=== PATIENT | female | born 1990 | race Caucasian/White ===

== ENCOUNTER 2020-01-16 10:29 | Inpatient (IN) | payer BC ==
[2020-01-16] MEDS ORDERED: LIDOCAINE 0.5% (PF) 5 MG/ML (50 ML SDV) SQ PRN (11:30)
[2020-01-16] MEDS ORDERED: OXYTOCIN 10 UNIT/ML 1 ML VIAL IM PRN (11:30)
[2020-01-16] MEDS ORDERED: TERBUTALINE 1 MG/ML VIAL SQ PRN (11:30)
[2020-01-16] MEDS ORDERED: METHYLERGONOVINE 0.2 MG/ML 1 ML AMP IM PRN (11:30)
[2020-01-16] MEDS ORDERED: OXYTOCIN 30 UNITS/500 ML NS 30 UNIT in SALINE 1 500ML.BAG IV SCH (11:30)
[2020-01-16] MEDS ORDERED: CARBOPROST TROMETHAMINE 250 MCG/ML 1 ML AMP IM PRN (11:30)
[2020-01-16 11:43] LABS: Basophils % (A) 0 %; Eosinophils # (A) 0.1 k/uL (0-0.7); Eosinophils % (A) 1 %; HCT 36.2 % (34.0-46.0); HGB 12.4 gm/dL (11.4-16.0); Lymphocytes # (A) 1.5 k/uL (1.0-4.8); Lymphocytes % (A) 18 %; MCH 30.6 pg (25.0-35.0); MCHC 34.2 g/dL (31.0-37.0); MCV 89.4 fL (80.0-100.0); Mean Platelet Volume 8.9; Monocytes # (A) 0.3 k/uL (0-1.0); Monocytes % (A) 3 %; Neutrophils # (A) 6.4 k/uL (1.3-7.7); Neutrophils % (A) 77 %; Platelet Count 196 k/uL (150-450); RBC 4.05 m/uL (3.80-5.40); RDW 14.1 % (11.5-15.5); WBC 8.3 k/uL (3.8-10.6)
[2020-01-16] MEDS: LACTATED RINGERS 1,000 ML IV SCH ×3 (12:26→19:35)
[2020-01-16] MEDS ORDERED: BUTORPHANOL 1 MG/ML 1 ML VIAL IV PRN (12:30)
--- NOTE | 2020-01-16 12:30 | P.HPOB ---
History of Present Illness H&P Date: 01/16/20 Chief Complaint: IUP @ 38 6/7 PRETTY [place] This is a pleasant 28-year-old 2 para 0010 at 38-6/7 weeks with an estimated due date of 01/23 based on last menstrual period and consistent with ultrasound. Patient has a known history of polycystic ovarian syndrome and has been on metformin, patient went through fertility with Dr. Garcia. Patient has a known history of hypothyroidism that has been stable throughout the . care has been essentially uncomplicated. Patient presents today with complaints of spontaneous rupture of membranes around 9 AM. Patient states she noted a clear gush of fluid at that time. Patient denies contractions. Patient then presented to the hospital, immature was noted to be family positive. Patient notes good movement , no vaginal bleeding. On bloodwork this patient has a blood type of O+, rubella status immune, RPR nonreactive, hepatitis B surface antigen negative, HIV negative, she did pass her early 1 hour Glucola along with her second trimester Glucola. Group beta strep was negative on 12/28. She did receive the TDap vaccination on 12/06. Review of Systems Constitutional: Denies chills, Denies fatigue, Denies fever Ears, nose, mouth and throat: Denies headache Cardiovascular: Reports leg edema Respiratory: Denies dyspnea Gastrointestinal: Denies constipation, Denies diarrhea, Denies nausea, Denies vomiting Genitourinary: Reports Past Medical History Past Medical History: No Reported History History of Any Multi-Drug Resistant Organisms: None Reported Past Surgical History: Hernia Repair Additional Past Surgical History / Comment(s): hernia operation at age of 6 Past Anesthesia/Blood Transfusion Reactions: No Reported Reaction Past Psychological History: Anxiety Smoking Status: Never smoker Past Alcohol Use History: None Reported Past Drug Use History: None Reported - Past Family History Father Family Medical History: Hypertension Medications and Allergies Home Medications Medication Instructions Recorded Confirmed Type Pnv No.95/Ferrous Fum/Folic AC 1 each PO DAILY 01/16/20 01/16/20 History [ Multivitamin Tablet] metFORMIN HCL 500 mg PO DAILY 01/16/20 01/16/20 History Allergies Allergy/AdvReac Type Severity Reaction Status Date / Time Latex, Natural Rubber AdvReac Itching Verified 01/16/20 10:35 Exam Osteopathic Statement: *. No significant issues noted on an osteopathic structural exam other than those noted in the History and Physical/Consult. Vital Signs Temp Pulse Resp BP 01/16/20 11:17 97 F L 89 16 131/81 01/16/20 10:36 97.0 F L 89 16 131/81 Intake and Output 01/15/20 01/16/20 01/16/20 22:59 06:59 14:59 Other: Weight 93.44 kg Targeted physical exam is performed in this date and counter former a well-nourished well-developed female in no acute distress, breathing is noted to be nonlabored, heart has regular rate and rhythm, abdomen is gravid, lower remedies noticed +1 edema, on vaginal exam she is 3/80/-2 amniotic sac is palpated and amniotomy is performed with clear fluid. heart tones are noted to be category 1 there contractions noted. Results Result Diagrams: 01/16/20 11:25 Assessment and Plan (1) Term Current Visit: Yes Status: Acute Code(s): Z34.90 - ENCNTR FOR SUPRVSN OF NORMAL , UNSP, UNSP TRIMESTER SNOMED Code(s): 44014650 (2) SROM (spontaneous rupture of membranes) Current Visit: Yes Status: Acute Code(s): YYZ6458 - SNOMED Code(s): 358083774 (3) PCOS (polycystic ovarian syndrome) Current Visit: Yes Status: Acute Code(s): E28.2 - POLYCYSTIC OVARIAN SYNDROME SNOMED Code(s): 893495729 (4) Hypothyroid Current Visit: Yes Status: Acute Code(s): E03.9 - HYPOTHYROIDISM, UNSPE CIFIED SNOMED Code(s): 66087341 Plan: This 29-year-old 2 para 0010 at 38-6/7 weeks is admitted to labor and delivery for spontaneous rupture of membranes. Patient is counseled on Pitocin augmentation of labor given no contractions are begun since her water broke around 9 AM. She states understanding of the plan. Plan Pitocin augmentation of labor, options for analgesia during labor discussed with patient including epidural and Stadol. Patient does wish epidural. We'll monitor closely.
--- NOTE | 2020-01-16 12:45 | P.MSEPDOC ---
Presenting Problems - Arrival Data Date of Arrival on Unit: 01/16/20 Time of Arrival on Unit: 11:15 Mode of Transport: Ambulatory - Complaint OB-Reason for Admission/Chief Complaint: Rule Out SROM Comment: reports rupture around 0900 am, clear fluid Medical History - Information : 2 Para: 0 Term: 0 : 0 Abortions: Spontaneous or Elective: 0 Number of Living Children: 0 - Gestational Age Gestational Age by NAOMI (wks/days): 38 Weeks and 6 Days Review of Systems - Review of Systems Constitutional: No problems Breast: No problems ENT: No problems Cardiovascular: No problems Respiratory: No problems Gastrointestinal: No problems Genitourinary: No problems Musculoskeletal: No problems Neurological: No problems Skin: No problems Vital Signs - Temperature Temperature: 97 F Temperature Source: Temporal Artery Scan - Pulse Right Brachial Pulse Rate: 89 Pulse Assessment Method: Automatic Cuff - Respirations Respiratory Rate: 16 Oxygen Delivery Method: Room Air - Blood Pressure Right Arm Blood Pressure: 131/81 Blood Pressure Mean: 97 Blood Pressure Source: Automatic Cuff Medical Screen Scoring (Pre) - Cervical Exam Dilation: 1-3 cm = 1 Effacement: More than 50% = 2 Membranes: Ruptured = 3 - Uterine Contractions Frequency: > 5 minutes apart = 1 Duration: N/A Intensity: N/A - Maternal Vital Signs Maternal Temperature: N/A Maternal Blood Pressure: N/A Signs of Preeclampsia: N/A Maternal Respirations: N/A - Maternal Trauma Maternal Trauma: N/A - Assessment - Baby A Baseline FHR: 155 Heart Rate - NICHD Category: Category I (Normal) = 0 NST: Reactive Position: N/A Station: N/A - Total Score - Baby A Total Score - Baby A: 7 - Total Score - Baby B Total Score - Baby B: 7 - Total Score - Baby C Total Score - Baby C: 7 - Level of Risk - Baby A Level of Risk - Baby A: Medium (6-9) - Level of Risk - Baby B Level of Risk - Baby B: Medium (6-9) - Level of Risk - Baby C Level of Risk - Baby C: Medium (6-9) Physician Notification (Pre) - Physician Notified Physician Notified Date: 01/16/20 Physician Notified Time: 10:58 New Order Received: Yes - Notification Comment Comment: reported positive amnisure, reactive nst, dilation. admit for labour Disposition - Disposition OB Disposition: Admit, LDRP Suite I agree with the RN Medical Screening Exam: Yes Risk & Benefit of care provided described in d/c instruction: Yes Diagnosis: RELATED CONDITIONS, UNSPECIFIED, THIRD TRIMESTER
[2020-01-16] MEDS ORDERED: SODIUM CHLORIDE 0.9% 100 ML BAG ONE ×2 (15:20)
[2020-01-16] MEDS ORDERED: fentaNYL (PF) 50 MCG/ML 5 ML AMP ONE ×2 (15:20)
[2020-01-16] MEDS ORDERED: ROPIVACAINE 5MG/ML 20ML VIAL ONE ×2 (15:20)
[2020-01-16] MEDS ORDERED: diphenhydrAMINE 25 MG CAP PO PRN (22:27)
[2020-01-16] MEDS ORDERED: diphenhydrAMINE 50 MG/ML 1 ML VIAL IVP PRN ×2 (22:27)
[2020-01-16] MEDS ORDERED: ZOLPIDEM 5 MG TAB PO PRN (22:27)
[2020-01-16] MEDS ORDERED: HYDROcodone/APAP 5-325MG 1 EACH TAB PO PRN (22:27)
[2020-01-16] MEDS ORDERED: diphenhydrAMINE 50 MG CAP PO PRN (22:27)
[2020-01-16] MEDS ORDERED: BENZOCAINE/MENTHOL SPRAY 1 GM/SPRAY AEROSOL TOPICAL PRN (22:27)
[2020-01-16] MEDS ORDERED: SIMETHICONE 80 MG CHEWABLE PO PRN (22:27)
[2020-01-16] MEDS ORDERED: LANOLIN CREAM 5 GM TUBE TOPICAL PRN (22:27)
[2020-01-16] MEDS ORDERED: ACETAMINOPHEN TAB 325 MG TAB PO PRN (22:27)
[2020-01-16] MEDS ORDERED: HYDROCORTISONE 2.5% RECTAL CREAM 30 GM TUBE RECTAL PRN (22:27)
[2020-01-16] MEDS ORDERED: OXYTOCIN 20 UNITS/1000 ML NS 1,000 ML IV SCH (22:30)
--- NOTE | 2020-01-16 22:33 | P.PROBDLV ---
Vaginal Delivery Note - . Vaginal Delivery Note: This pleasant 29-year-old 2 para 0010 at 38-6/7 weeks presented to labor and delivery this morning with complaints of rupture of membranes. Rupture of membranes was confirmed with amnio sure. Patient was admitted to labor and delivery and Pitocin augmentation of labor was begun. Patient did undergo amniotomy of a 4 bag clear fluid was obtained. Patient was noted to be group beta strep negative.. Patient progressed through labor eventually becoming uncomfortable and requesting epidural placement epidural was placed by the anesthesia Department without difficulty. Patient progressed to complete began pushing and had a normal spontaneous vaginal delivery of a viable male at 2210, weight of 7 lbs. 9 oz. with Apgars of 7-8 at one and 5 minutes respectively. tachycardia was noted just prior to delivery therefore nursery RN was there to receive the baby. Spontaneous cry was noted at . The umbilical cord was doubly clamped and cut and the was handed off to awaiting RN. The placenta was then delivered spontaneously intact with a three-vessel cord being noted, the placenta was noted to be warm to touch. No maternal temps. were noted during delivery. On inspection the patient's vaginal vault a first- degree vaginal laceration was noted this was repaired in the usual fashion with 3-0 Rapide. After instillation of lidocaine. No further lacerations were noted on further inspection hemostasis was appreciated on laceration site after repair. Estimated blood loss 300 mL All counts were noted to be correct 2 Patient and infant tolerated delivery well and are resting comfortably.
[2020-01-16] MEDS: IBUPROFEN 600 MG TAB PO PRN (22:36)
[2020-01-17 06:16] LABS: Basophils % (A) 0 %; Eosinophils % (A) 0 %; HCT 32.7 % (34.0-46.0); HGB 10.7 gm/dL (11.4-16.0); Lymphocytes # (A) 1.6 k/uL (1.0-4.8); Lymphocytes % (A) 9 %; MCH 29.4 pg (25.0-35.0); MCHC 32.8 g/dL (31.0-37.0); MCV 89.8 fL (80.0-100.0); Mean Platelet Volume 8.6; Monocytes # (A) 0.6 k/uL (0-1.0); Monocytes % (A) 3 %; Neutrophils # (A) 14.7 k/uL (1.3-7.7); Neutrophils % (A) 86 %; Platelet Count 183 k/uL (150-450); RBC 3.64 m/uL (3.80-5.40); RDW 14.2 % (11.5-15.5); WBC 17.1 k/uL (3.8-10.6)
[2020-01-17] MEDS: SENNOSIDES-DOCUSATE SODIUM 1 EACH TAB PO SCH ×2 (07:32→19:51)
[2020-01-17] MEDS: IBUPROFEN 600 MG TAB PO PRN ×2 (07:33→18:51)
[2020-01-17 08:35] VITALS: RESP 16
--- NOTE | 2020-01-17 09:08 | P.PNOBGVD ---
Subjective - Subjective Principal diagnosis: day 1 Interval history: Feeling sore, moderate lochia, voiding spontaneously Patient reports: Reports appetite normal, Reports voiding normally, Reports pain well controlled, Reports ambulating normally, Denies dizzy ambulation : doing well Objective - Latest Vital Signs Latest vital signs: Vital Signs Temp Pulse Resp BP Pulse Ox 01/17/20 08:00 97.6 F 86 16 121/72 01/17/20 04:00 97.8 F 80 14 148/86 98 01/17/20 00:19 98 F 77 14 131/65 97 01/16/20 23:49 98.3 F 98 14 137/66 01/16/20 23:19 94 14 129/61 01/16/20 23:04 103 H 14 123/59 01/16/20 22:49 93 14 127/59 01/16/20 22:34 98.5 F 109 H 14 142/57 01/16/20 22:19 98 F 116 H 14 126/59 96 01/16/20 12:45 97 F L 89 16 131/81 01/16/20 11:17 97 F L 89 16 131/81 01/16/20 10:36 97.0 F L 89 16 131/81 Intake and Output 01/16/20 01/17/20 01/17/20 22:59 06:59 14:59 Output Total 300 Balance -300 Output: Estimated Blood Loss 300 Other: # Voids 1 1 1 - Exam Extremities: Present: normal, edema Abdomen: Present: normal appearance, soft Uterus: Present: normal, firm - Labs Labs: Abnormal Lab Results - Last 24 Hours (Table) 01/17/20 Range/Units 05:25 WBC 17.1 H (3.8-10.6) k/uL RBC 3.64 L (3.80-5.40) m/uL Hgb 10.7 L (11.4-16.0) gm/dL Hct 32.7 L (34.0-46.0) % Neutrophils # 14.7 H (1.3-7.7) k/uL Assessment and Plan (1) Hypothyroid Current Visit: Yes Status: Acute Code(s): E03.9 - HYPOTHYROIDISM, UNSPECIFIED SNOMED Code(s): 21898452 (2) PCOS (polycystic ovarian syndrome) Current Visit: Yes Status: Acute Code(s): E28.2 - POLYCYSTIC OVARIAN SYNDROME SNOMED Code(s): 464529420 (3) SROM (spontaneous rupture of membranes) Current Visit: Yes Status: Acute Code(s): TLS0880 - SNOMED Code(s): 838780921 (4) Term Current Visit: Yes Status: Acute Code(s): Z34.90 - ENCNTR FOR SUPRVSN OF NORMAL , UNSP, UNSP TRIMESTER SNOMED Code(s): 26597256 (5) Normal spontaneous vaginal delivery Current Visit: Yes Status: Acute Code(s): O80 - ENCOUNTER FOR FULL-TERM UNCOMPLICATED DELIVERY SNOMED Code(s): 19933117 (6) Perineal laceration with delivery, second degree Current Visit: Yes Status: Acute Code(s): O70.1 - SECOND DEGREE PERINEAL LACERATION DURING DELIVERY SNOMED Code(s): 1526887 Plan: 29 year old 2 para 1 day one half status post normal spontaneous vaginal delivery. Recovering well. Probable discharge home tomorrow.
[2020-01-17] MEDS: metFORMIN 500 MG TAB PO SCH (11:11)
[2020-01-17] MEDS: PRENATAL VIT-IRON-FOLIC ACID 1 EACH CAP PO SCH (11:11)
[2020-01-18] MEDS: IBUPROFEN 600 MG TAB PO PRN ×2 (00:43→07:46)
[2020-01-18] MEDS: PRENATAL VIT-IRON-FOLIC ACID 1 EACH CAP PO SCH (07:46)
[2020-01-18] MEDS: SENNOSIDES-DOCUSATE SODIUM 1 EACH TAB PO SCH (07:47)
[2020-01-18] MEDS: metFORMIN 500 MG TAB PO SCH (07:49)
[2020-01-18 07:52] VITALS: BP 115/81; PULSE 84; TEMP 97.7
--- NOTE | 2020-01-18 10:34 | P.DS ---
Providers Date of admission: 01/16/20 10:51 Expected date of discharge: 01/18/20 Attending physician: Mirian Burns Primary care physician: Stated None - Discharge Diagnosis(es) (1) Hypothyroid Current Visit: Yes Status: Acute (2) PCOS (polycystic ovarian syndrome) Current Visit: Yes Status: Acute (3) SROM (spontaneous rupture of membranes) Current Visit: Yes Status: Acute (4) Term Current Visit: Yes Status: Acute (5) Normal spontaneous vaginal delivery Current Visit: Yes Status: Acute (6) Perineal laceration with delivery, second degree Current Visit: Yes Status: Acute Hospital Course: This is a 29-year-old 2 now para 1011 woman who was admitted at 38-6/7 weeks' gestation with spontaneous rupture of membranes. She underwent a Pitocin induction of labor. She received an epidural anesthetic. She went on to deliver a liveborn male weighing 7 lbs. 9 oz. with Apgars of 7 at 1 minute and 8 at 5 minutes. Infant had some tachycardia immediately prior to delivery. The infant was monitored for CBC as well as a heart murmur and was diagnosed with ASD by the nursery staff. The patient's course was unremarkable. By day #1 she was ambulating and voiding without difficulty. By day #2 she continued to do well with stable vital signs, decreasing lochia and she was breast-feeding successfully. was discharged to follow up with film and video graphics designer in good condition and the patient was therefore discharged home on day #2 with routine instructions for care and follow-up. Procedures: Patient Condition at Discharge: Good Plan - Discharge Summary Discharge Rx Participant: Yes New Discharge Prescriptions: No Action metFORMIN HCL 500 mg PO DAILY Pnv No.95/Ferrous Fum/Folic AC [ Multivitamin Tablet] 1 each PO DAILY Discharge Medication List Pnv No.95/Ferrous Fum/Folic AC [ Multivitamin Tablet] 1 each PO DAILY 01/16/20 [History] metFORMIN HCL 500 mg PO DAILY 01/16/20 [History] Follow up Appointment(s)/Referral(s): Karena Vasquez MD [STAFF PHYSICIAN] - 6 Weeks Activity/Diet/Wound Care/Special Instructions: Follow-up in the office in 6 weeks . Call with any concerning signs or symptoms including heavy vaginal bleeding, severe abdominal pain, fever greater than 101, swelling or redness of the lower extremities, foul vaginal discharge, or signs of depression. Nothing in the vagina for 6 weeks after delivery, specifically no intercourse. May use [id number] Tylenol and/or ibuprofen as needed for pain. May discontinue home metformin. Discharge Disposition: HOME SELF-CARE
== END 2020-01-18 13:41 | disposition home or self-care (01) | DRG 807 ==
LOC: FBPOP 10:29 → 4FBP 10:51
PROVIDERS: ADMIT Obstetrics & Gynecology Obstetrics; ATTEND Obstetrics & Gynecology Obstetrics
PROC: 0KQM0ZZ Repair Perineum Muscle, Open Approach (ICD-10-PCS; principal; 2020-01-16)
PROC: 10E0XZZ Delivery of Products of Conception, External Approach (ICD-10-PCS; principal; 2020-01-16)
DX: O99.284 Endocrine, nutritional and metabolic diseases complicating childbirth (principal); Z37.0 Single live birth; O70.1 Second degree perineal laceration during delivery; O76 Abnormality in fetal heart rate and rhythm complicating labor and delivery; E03.9 Hypothyroidism, unspecified; E28.2 Polycystic ovarian syndrome; Z3A.38 38 weeks gestation of pregnancy; Z79.84 Long term (current) use of oral hypoglycemic drugs; Z91.040 Latex allergy status; Z86.59 Personal history of other mental and behavioral disorders; Z82.49 Family history of ischemic heart disease and other diseases of the circulatory system
CPT/HCPCS: 59025; 84112; 85025; 86850; 86900; 86901; 88307; 99213

== ENCOUNTER → 2020-05-11 | Outpatient (CLI) | payer BC | END | disposition home or self-care (01) | LOC: LABWHC1 09:09 | DX: Z20.828 Contact with and (suspected) exposure to other viral communicable diseases (principal) | CPT/HCPCS: 87502; U0003; C9803 ==

== ENCOUNTER 2021-02-22 06:30 | Inpatient (IN) | payer BC ==
[2021-02-22] MEDS ORDERED: TERBUTALINE 1 MG/ML VIAL SQ PRN (06:45)
[2021-02-22] MEDS ORDERED: CARBOPROST TROMETHAMINE 250 MCG/ML 1 ML AMP IM PRN (06:45)
[2021-02-22] MEDS ORDERED: OXYTOCIN 30 UNITS/500 ML NS 30 UNIT in SALINE 1 500ML.BAG IV SCH ×2 (06:45→13:15)
[2021-02-22] MEDS ORDERED: LIDOCAINE 0.5% (PF) 5 MG/ML (50 ML SDV) SQ PRN (06:45)
[2021-02-22] MEDS ORDERED: METHYLERGONOVINE 0.2 MG/ML 1 ML AMP IM PRN (06:45)
[2021-02-22] MEDS ORDERED: OXYTOCIN 10 UNIT/ML 1 ML VIAL IM PRN (06:45)
[2021-02-22] MEDS: LACTATED RINGERS 1,000 ML IV SCH ×2 (07:02→10:11)
[2021-02-22 08:14] LABS: Basophils % (A) 0 %; Eosinophils # (A) 0.1 k/uL (0-0.7); Eosinophils % (A) 1 %; HCT 35.4 % (34.0-46.0); HGB 12.4 gm/dL (11.4-16.0); Lymphocytes # (A) 1.8 k/uL (1.0-4.8); Lymphocytes % (A) 17 %; MCH 32.4 pg (25.0-35.0); MCV 92.5 fL (80.0-100.0); Mean Platelet Volume 7.7; Monocytes # (A) 0.5 k/uL (0-1.0); Monocytes % (A) 5 %; Neutrophils % (A) 76 %; Platelet Count 207 k/uL (150-450); RBC 3.82 m/uL (3.80-5.40); RDW 14.3 % (11.5-15.5); WBC 10.6 k/uL (3.8-10.6)
[2021-02-22] MEDS ORDERED: BUTORPHANOL 1 MG/ML 1 ML VIAL IV PRN (08:48)
--- NOTE | 2021-02-22 08:53 | P.HPOB ---
History of Present Illness H&P Date: 02/22/21 Chief Complaint: 39+ weeks, elective induction of labor The patient is a 30-year-old 3 para 1011 admitted at 39+ weeks as established by early ultrasound. Her has been uncomplicated and group B strep status is negative. On labor and delivery, all signs reassuring with a category 1 heart rate tracing. She has requested tubal ligation should section become necessary. Obstetrical history: 3 para [id number] with 1 term vaginal delivery and 1 early miscarriage not requiring D&C. Current statistics are listed in history of present illness. EDC of 02/27/2021 was established by early ultrasound. Laboratory workup demonstrates a blood type of O+ with a negative antibody screen. Rubella status is nonimmune. The remainder of laboratory workup was within normal limits. One hour Glucola was normal and group B strep status is negative. Gynecologic history: Unremarkable with no history of any infections to include STDs. Review of Systems Review of systems is confined to history of present illness. Past Medical History Past Medical History: No Reported History History of Any Multi-Drug Resistant Organisms: None Reported Past Surgical History: Hernia Repair Additional Past Surgical History / Comment(s): hernia operation at age of 6, broke tail bone at 13 or 14 yrs old Past Anesthesia/Blood Transfusion Reactions: No Reported Reaction Past Psychological History: Anxiety Smoking Status: Never smoker Past Alcohol Use History: None Reported Past Drug Use History: None Reported - Past Family History Father Family Medical History: Hypertension Medications and Allergies Home Medications Medication Instructions Recorded Confirmed Type Pnv No.95/Ferrous Fum/Folic AC 1 each PO DAILY 01/16/20 02/22/21 History [ Multivitamin Tablet] metFORMIN HCL 500 mg PO DAILY 01/16/20 02/22/21 History Aspirin 81 mg PO DAILY 02/22/21 02/22/21 History Allergies Allergy/AdvReac Type Severity Reaction Status Date / Time Latex, Natural Rubber AdvReac Itching Verified 01/16/20 10:35 Exam Vital Signs Temp Pulse Resp BP Pulse Ox 02/22/21 06:44 96.9 F L 94 16 129/69 100 Intake and Output 02/21/21 02/22/21 02/22/21 22:59 06:59 14:59 Other: Weight 97.976 kg In general, this is a well-developed, mildly obese white female in no acute distress. Her heart has a regular rhythm and rate without murmur. Her lungs are clear to auscultation bilaterally in all carrera. Her abdomen is gravid, nondistended, has normal active bowel sounds, soft, nontender, and without any palpable masses aside from uterine fundus. Her extremities are without any cyanosis, clubbing, or edema and are nontender to palpation bilaterally. Digital cervical examination on straights discharged to approximately 37 m dilated, 50% effaced, the vertex in presentation at -2 station. Artificial rupture of membranes is carried out demonstrating clear fluid. Results Result Diagrams: 02/22/21 06:55 Abnormal Lab Results - Last 24 Hours (Table) 02/22/21 Range/Units 06:55 Neutrophils # 8.0 H (1.3-7.7) k/uL Assessment and Plan (1) Term Current Visit: Yes Status: Acute Code(s): Z34.90 - ENCNTR FOR SUPRVSN OF NORMAL , UNSP, UNSP TRIMESTER SNOMED Code(s): 22585873 Plan: The patient is admitted for elective induction of labor with all signs reassuring. Pitocin augmentation has been started and artificial rupture of membranes carried out. She will continue to have close maternal and surveillance and expectant management will be practice. She is a good candidate for either IV or epidural analgesia, whichever she may choose.
[2021-02-22] MEDS ORDERED: ROPIVACAINE 5MG/ML 20ML VIAL ONE (09:47)
[2021-02-22] MEDS ORDERED: fentaNYL (PF) 50 MCG/ML 5 ML AMP ONE (09:47)
[2021-02-22] MEDS ORDERED: SODIUM CHLORIDE 0.9% 100 ML BAG ONE (09:47)
[2021-02-22] MEDS ORDERED: BENZOCAINE/MENTHOL SPRAY 1 GM/SPRAY AEROSOL TOPICAL PRN (13:13)
[2021-02-22] MEDS ORDERED: HYDROcodone/APAP 5-325MG 1 EACH TAB PO PRN (13:13)
[2021-02-22] MEDS ORDERED: SIMETHICONE 80 MG CHEWABLE PO PRN (13:13)
[2021-02-22] MEDS ORDERED: HYDROcodone/APAP 7.5-325MG 1 EACH TAB PO PRN (13:13)
[2021-02-22] MEDS ORDERED: diphenhydrAMINE 25 MG CAP PO PRN (13:13)
[2021-02-22] MEDS ORDERED: LANOLIN CREAM 5 GM TUBE TOPICAL PRN (13:13)
[2021-02-22] MEDS ORDERED: ZOLPIDEM 5 MG TAB PO PRN (13:13)
[2021-02-22] MEDS ORDERED: HYDROCORTISONE 2.5% RECTAL CREAM 30 GM TUBE RECTAL PRN (13:13)
[2021-02-22] MEDS ORDERED: diphenhydrAMINE 50 MG/ML 1 ML VIAL IVP PRN ×2 (13:13)
[2021-02-22] MEDS ORDERED: diphenhydrAMINE 50 MG CAP PO PRN (13:13)
--- NOTE | 2021-02-22 13:16 | P.PROBDLV ---
Vaginal Delivery Note - . Vaginal Delivery Note: The patient is a 30-year-old 3 para 1011 admitted at 39-2/7 weeks by good dating parameters perches admitted for elective induction of labor with all signs reassuring. Her has been uncomplicated and group B strep status is negative. On labor and delivery, she had Pitocin started followed by artificial rupture of membranes for clear fluid. She made progress to the active phase of labor had an epidural catheter placed for analgesia. She progressed fairly quickly to complete and then pushed over the course of approximately 4-5 contractions to a normal spontaneous vaginal delivery of a viable 7 lbs. 14 oz. baby girl with Apgars of 8 at 1 minute and 9 at 5 minutes delivered in the direct occiput anterior position. The placenta was delivered spontaneously, intact, and grossly normal with a grossly normal although very short three-vessel cord inserted approximate 3 cm from the margin of the placental disc. There were no lacerations of the perineum, vagina, or cervix. All sponge, instrument, and needle counts were correct. Estimated blood loss was approximately 200 mL. There were no complications. Both mother and are resting comfortably in recovery.
[2021-02-22] MEDS: IBUPROFEN 600 MG TAB PO PRN (13:48)
[2021-02-22] MEDS ORDERED: MEASLES-MUMPS-RUBELLA VACC/PF 12,500 UNIT/0.5 ML VIAL SQ ONE (14:53)
[2021-02-22] MEDS: SENNOSIDES-DOCUSATE SODIUM 1 EACH TAB PO SCH (19:57)
[2021-02-22] MEDS: ACETAMINOPHEN TAB 325 MG TAB PO PRN (19:57)
[2021-02-23] MEDS: IBUPROFEN 600 MG TAB PO PRN ×2 (01:09→08:49)
[2021-02-23] MEDS: ACETAMINOPHEN TAB 325 MG TAB PO PRN (05:05)
[2021-02-23 07:25] LABS: Basophils % (A) 0 %; Eosinophils # (A) 0.1 k/uL (0-0.7); Eosinophils % (A) 1 %; HCT 35.3 % (34.0-46.0); HGB 12.2 gm/dL (11.4-16.0); Lymphocytes # (A) 1.8 k/uL (1.0-4.8); Lymphocytes % (A) 15 %; MCH 32.3 pg (25.0-35.0); MCHC 34.5 g/dL (31.0-37.0); MCV 93.5 fL (80.0-100.0); Mean Platelet Volume 8.7; Monocytes # (A) 0.5 k/uL (0-1.0); Monocytes % (A) 4 %; Neutrophils # (A) 9.6 k/uL (1.3-7.7); Neutrophils % (A) 78 %; Platelet Count 207 k/uL (150-450); RBC 3.77 m/uL (3.80-5.40); RDW 14.4 % (11.5-15.5); WBC 12.2 k/uL (3.8-10.6)
[2021-02-23 08:10] VITALS: BP 117/62; PULSE 68; RESP 16; TEMP 97.8
[2021-02-23] MEDS: SENNOSIDES-DOCUSATE SODIUM 1 EACH TAB PO SCH (08:48)
--- NOTE | 2021-02-23 08:58 | P.DS ---
Providers Date of admission: 02/22/21 06:35 Expected date of discharge: 02/23/21 Attending physician: Ted Bales Primary care physician: Stated None - Discharge Diagnosis(es) (1) Term Current Visit: Yes Status: Acute (2) Normal spontaneous vaginal delivery Current Visit: Yes Status: Acute Hospital Course: The patient is a 30-year-old 3 para 1011 admitted at 39+ weeks by good dating parameters perches admitted for elective induction with all signs reassuring. Her was uncomplicated and group B strep status is negative. On labor and delivery, she had Pitocin started followed by artificial rupture of membranes for clear fluid. She made progress to the active phase and had an epidural catheter placed for analgesia. She then progressed fairly quickly through the active phase to complete and pushed to a normal spontaneous vaginal delivery of a viable 7 lbs. 14 oz. baby girl with Apgars of 8 at 1 minute and 9 at 5 minutes. Her course was unremarkable vital signs were stable and the patient was afebrile throughout. She was deemed stable for discharge on day 1 was discharged home to follow-up in the office in 6 weeks' time routinely. Discharge instructions included calling for any significantly increased bleeding or foul-smelling lochia, significantly increased fever abdominal pain, perineal complaints, breast complaints, or anything else that concerned her. She was additionally instructed to have nothing in the vagina for at least 6 weeks time to include intercourse. She understood her instructions and agrees to follow up as noted above. Discharge medications included continued vitamins as she has opted to breast- feed. She was otherwise to use [id number] analgesic pain medications as needed. Maternal blood type is O+ and rubella status is nonimmune. She therefore was to receive the MMR vaccination prior to discharge. Procedures: #1. Pitocin induction #2. Artificial rupture of membranes #3. Epidural analgesia #4. Normal spontaneous vaginal delivery Patient Condition at Discharge: Stable Plan - Discharge Summary New Discharge Prescriptions: No Action metFORMIN HCL 500 mg PO DAILY Pnv No.95/Ferrous Fum/Folic AC [ Multivitamin Tablet] 1 each PO DAILY Aspirin 81 mg PO DAILY Discharge Medication List Pnv No.95/Ferrous Fum/Folic AC [ Multivitamin Tablet] 1 each PO DAILY 01/16/20 [History] metFORMIN HCL 500 mg PO DAILY 01/16/20 [History] Aspirin 81 mg PO DAILY 02/22/21 [History] Follow up Appointment(s)/Referral(s): Ted Bales MD [STAFF PHYSICIAN] - 6 Weeks Discharge Disposition: HOME SELF-CARE
== END 2021-02-23 14:20 | disposition home or self-care (01) | DRG 807 ==
LOC: 4FBP 06:35
PROVIDERS: ADMIT Obstetrics & Gynecology; ATTEND Obstetrics & Gynecology
PROC: 00HU33Z Insertion of Infusion Device into Spinal Canal, Percutaneous Approach (ICD-10-PCS; principal; 2021-02-22)
PROC: 3E033VJ Introduction of Other Hormone into Peripheral Vein, Percutaneous Approach (ICD-10-PCS; principal; 2021-02-22)
PROC: 10907ZC Drainage of Amniotic Fluid, Therapeutic from Products of Conception, Via Natural or Artificial Opening (ICD-10-PCS; principal; 2021-02-22)
PROC: 3E0R3BZ Introduction of Anesthetic Agent into Spinal Canal, Percutaneous Approach (ICD-10-PCS; principal; 2021-02-22)
PROC: 10E0XZZ Delivery of Products of Conception, External Approach (ICD-10-PCS; principal; 2021-02-22)
PROC: 3E0134Z Introduction of Serum, Toxoid and Vaccine into Subcutaneous Tissue, Percutaneous Approach (ICD-10-PCS; 2021-02-22)
DX: O99.284 Endocrine, nutritional and metabolic diseases complicating childbirth (principal); Z37.0 Single live birth; E28.2 Polycystic ovarian syndrome; Z30.2 Encounter for sterilization; Z3A.39 39 weeks gestation of pregnancy; Z23 Encounter for immunization; Z79.84 Long term (current) use of oral hypoglycemic drugs; Z79.82 Long term (current) use of aspirin; Z79.899 Other long term (current) drug therapy; Z87.19 Personal history of other diseases of the digestive system; Z87.81 Personal history of (healed) traumatic fracture; Z86.59 Personal history of other mental and behavioral disorders; Z98.890 Other specified postprocedural states; Z82.49 Family history of ischemic heart disease and other diseases of the circulatory system; Z91.040 Latex allergy status
CPT/HCPCS: 85025; 86850; 86900; 86901; 90707